=== PATIENT | female | born 1935 | race Caucasian/White ===

== ENCOUNTER 2017-01-26 07:50 | Inpatient (IN) | payer MEDICARE ==
[2017-01-26] MEDS ORDERED: Sodium Chloride 0.9% 1,000 ML IV STA (08:13)
[2017-01-26] MEDS ORDERED: metroNIDAZOLE IV 500 mg/100 ml 500 MG/100 ML BAG IVPB STA (08:15)
[2017-01-26] MEDS ORDERED: cefTRIAXone 1 gm 1 GM/100 ML BAG IVPB STA (08:15)
--- NOTE | 2017-01-26 08:31 | ED PDOC ---
Arrival/HPI - General Chief Complaint: Abdominal Pain Time Seen by Provider: 01/26/17 07:55 - History of Present Illness Narrative History of Present Illness (Text): 01/26/17 08:22 81 y/o F w/ PMHx of HTN presents to the ED via ambulance for abd pain. 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 Pt reports abd pain, nausea, and diarrhea on (01/24/17) after dinner. Non-radiating pain was worse in LUQ but extended across entire upper abd. Pt admits to 3 episodes of loose, light- colored stool night following the pain. When pain did not improve the following morning, pt went to the medical quarters for evaluation. Pt admits to nausea but denies vomiting. Pt has never had these symptoms previously. Pt denies F/C, constipation, CP, SOB. Labs were drawn showing elevated liver enzymes and amylase. Pt was started on IVF, abx, and given zofran for nausea. Currently pain is w/o pain or nausea. (Margie Pierre) Past Medical History - Provider Review Nursing Documentation Reviewed: Yes - Infectious Disease Hx of Infectious Diseases: None - Cardiac Hx Hypertension: Yes - Psychiatric Hx Substance Use: No - Surgical History Hx Thyroidectomy: Yes Family/Social History - Physician Review Nursing Documentation Reviewed: Yes Family/Social History: No Known Family HX Smoking Status: Never Smoked Hx Alcohol Use: No Hx Substance Use: No Allergies/Home Meds Allergies/Adverse Reactions: Allergies No Known Allergies Allergy (Verified 01/26/17 07:57) Home Medications: Home Meds Medication Instructions Recorded Confirmed Metoprolol Succinate [Toprol XL] 50 mg PO DAILY 01/26/17 01/26/17 amLODIPine [Norvasc] 5 mg PO DAILY 01/26/17 01/26/17 Review of Systems - Physician Review All systems were reviewed & negative as marked: Yes - Review of Systems Constitutional: absent: Fevers Respiratory: absent: SOB Physical Exam Vital Signs Reviewed: Yes Temperature: Afebrile Blood Pressure: Normal Pulse: Regular Respiratory Rate: Normal Appearance: Positive for: Non-Toxic, Comfortable Pain Distress: None Mental Status: Positive for: Alert and Oriented X 3 - Systems Exam Head: Present: Atraumatic, Normocephalic Pupils: Present: PERRL Extroacular Muscles: Present: EOMI Conjunctiva: Present: Normal Mouth: Present: Moist Mucous Membranes Respiratory/Chest: Present: Clear to Auscultation, Good Air Exchange. No: Respiratory Distress, Accessory Muscle Use Cardiovascular: Present: Regular Rate and Rhythm, Normal S1, S2. No: Murmurs Abdomen: Present: Normal Bowel Sounds, Other (negative Fonseca's sign). No: Tenderness, Distention, Peritoneal Signs Upper Extremity: Present: Normal Inspection Lower Extremity: Present: Normal Inspection. No: Edema, CALF TENDERNESS Neurological: Present: GCS=15, Speech Normal Skin: Present: Warm, Dry, Normal Color Psychiatric: Present: Alert, Oriented x 3, Normal Insight, Normal Concentration Medical Decision Making - Lab Interpretations I have reviewed the lab results: Yes Interpretation: Abnormal lab values (lipase 2200) - RAD Interpretation Seafood Manager: Radiologist - EKG Interpretation Interpreted by ED Physician: Yes (NSR, rate 94, no ST elevations/depressions) ED Course and Treatment: 01/26/17 08:32 81 y/o F w/ recent abd pain - labs - EKG - Abd US - IV Abx - fluid bolus - reassess and dispo 01/26/17 08:34 01/26/17 10:29 Pt resting comfortably in bed. denies pain or nausea. discussed admission for elevated lipase w/ pt and family at bedside, both are agreeable. Waiting for callback from Dr. Claudio for admission. 01/26/17 10:[address] Claudio, who accepts pt to his service. consults ordered for GI, Dr. Mccarthy, and General Surgery, Dr. John. Dr. Mccarthy service called, waiting for call back. Remote Ruby On Rails Developer agriculture consultant notified of consult. 01/26/17 11:18 Spoke to GI Fellow who requested LR@200, CLD, lipid panel, and MRCP w/o contrast. Fellow to see pt tomorrow morning. (Margie Pierre) 01/26/17 12:41 Patient seen and examined with resident Came up with treatment and disposition plan with resident (Brice Chavez) - Lab Interpretations Lab Results: 01/26/17 08:30 01/26/17 09:16 Lab Results 01/26/17 09:20: Urine Color Yellow, Urine Appearance Clear, Urine pH 7.0, Ur Specific [place] 1.015, Urine Protein Negative, Urine Glucose (UA) Negative, Urine Ketones 40 H, Urine Blood Trace-intact H, Urine Nitrate Negative, Urine Bilirubin Negative, Urine Urobilinogen 0.2, Ur Leukocyte Esterase Negative, Urine RBC 0 - 2, Urine WBC 0 - 2, Ur Epithelial Cells Many, Urine Bacteria Few 01/26/17 09:16: Sodium 139, Potassium 2.9 L*, Chloride 104, Carbon Dioxide 29, Anion Gap 9 L, BUN 8, Creatinine 0.5, Est GFR ( Amer) > 60, Est GFR (Non- Af Amer) > 60, Random Glucose 81, Calcium 8.7, Total Bilirubin 0.7, AST 138 H, ALT 261 H, Alkaline Phosphatase 198 H, Total Protein 6.5, Albumin 3.4, Globulin 3.1, Albumin/Globulin Ratio 1.1, Lipase 2237 H 01/26/17 08:30: PT 12.0 H, INR 1.11 H, APTT 28.8 01/26/17 08:30: WBC 10.1, RBC 3.78, Hgb 10.8 L, Hct 32.4 L, MCV 85.7, MCH 28.6, MCHC 33.3, RDW 16.1 H, Plt Count 289, MPV 9.6, Gran % 75.8 H, Lymph % (Auto) 15.8 L, [place] % (Auto) 6.6 H, Eos % (Auto) 1.6, Baso % (Auto) 0.2, Gran # 7.69 H , Lymph # 1.6, [place] # 0.7 H, Eos # 0.2, Baso # 0.02 - RAD Interpretation Narrative RAD Interpretations (Text): 01/26/17 10:32 Abd US FINDINGS: LIVER: Measures 13.4 cm in sagittal dimension. Echogenic liver may be seen in setting of hepatic parenchymal disease or fatty infiltration. No focal hepatic mass identified. The main portal vein appears patent with normal directional flow. No intrahepatic bile duct dilatation. GALLBLADDER: Gallstones. Mild gallbladder wall thickening measuring approximately 4 mm. Negative sonographic Fonseca's sign as assessed by the machine stripper. COMMON BILE DUCT: Measures 5 mm. PANCREAS: Not well visualized. RIGHT KIDNEY: Measures 9.8 x 4.8 x 5.1 cm. No obstructing calculus or hydronephrosis identified. LEFT KIDNEY: Measures 11.2 x 6.0 x 5.3 cm. No obstructing calculus or hydronephrosis identified. SPLEEN: Measures approximately 8.8 x 5.3 cm. AORTA: Limited views appear unremarkable. IVC: Limited views appear unremarkable. OTHER FINDINGS: None. IMPRESSION: Echogenic liver may be seen in setting of hepatic parenchymal disease or fatty infiltration. Cholelithiasis. Mild gallbladder wall thickening. Negative sonographic Fonseca' s sign as assessed by the machine stripper. Correlate clinically. (Margie Pierre) Radiology Orders: 01/26/17 08:13 ABDOMEN COMPLETE [US] Stat - Medication Orders Current Medication Orders: Amlodipine Besylate (Norvasc) 5 mg PO DAILY JULIANNE Potassium Chloride (Potassium Chloride 20 Meq/100 Ml) 20 meq in 100 mls @ 50 mls/hr IVPB Q2H JULIANNE Stop: 01/26/17 13:59 Last Admin: 01/26/17 10:43 Dose: 50 mls/hr Ceftriaxone Sodium (Rocephin 1 Gram Ivpb) 1 gm in 100 mls @ 100 mls/hr IVPB DAILY JULIANNE PRN Reason: Protocol Metronidazole (Flagyl) 500 mg in 100 mls @ 100 mls/hr IVPB Q8 JULIANNE PRN Reason: Protocol Sodium Chloride (Sodium Chloride 0.45%) 1,000 mls @ 60 mls/hr IV .[id number] JULIANNE Metoprolol Succinate (Toprol Xl) 50 mg PO DAILY JULIANNE Morphine Sulfate (Morphine) 2 mg IVP Q4H PRN PRN Reason: Pain, moderate (4-7) Discontinued Medications Metronidazole (Flagyl) 500 mg in 100 mls @ 100 mls/hr IVPB STAT STA PRN Reason: Protocol Stop: 01/26/17 09:14 Last Admin: 01/26/17 08:32 Dose: 100 mls/hr Ceftriaxone Sodium (Rocephin 1 Gram Ivpb) 1 gm in 100 mls @ 200 mls/hr IVPB STAT STA PRN Reason: Protocol Stop: 01/26/17 08:44 Last Admin: 01/26/17 10:43 Dose: 200 mls/hr Sodium Chloride (Sodium Chloride 0.9%) 1,000 mls @ 1,000 mls/hr IV .Q1H STA Stop: 01/26/17 09:12 Last Admin: 01/26/17 08:31 Dose: 1,000 mls/hr Disposition/Present on Arrival - Present on Arrival Any Indicators Present on Arrival: No History of DVT/PE: No History of Uncontrolled Diabetes: No Urinary Catheter: No History of Decub. Ulcer: No History Surgical Site Infection Following: None - Disposition Have Diagnosis and Disposition been Completed?: Yes Disposition Time: 10:40 Patient Plan: Admission - Disposition Diagnosis: Pancreatitis, gallstone Disposition: HOSPITALIZED Patient Problems: Current Active Problems Problem Status Onset Pancreatitis, gallstone Acute Condition: STABLE
[2017-01-26 08:35] LABS: ADD MANUAL DIFF? NO
[2017-01-26 08:39] LABS: BASO # 0.02 K/mm3 (0.0-2.0); BASO % 0.2 % (0.0-3.0); EOS # 0.2 (0.0-0.7); EOS % 1.6 % (1.5-5.0); GRAN # 7.69 (1.4-6.5); GRAN % 75.8 % (50.0-68.0); HEMATOCRIT 32.4 % (36.0-48.0); LYMPH # 1.6 (1.2-3.4); LYMPH % 15.8 % (22.0-35.0); MEAN CELL VOLUME 85.7 fL (80.0-105.0); MEAN CORPUSCULAR HEMOGLOBIN 28.6 pg (25.0-35.0); MEAN CORPUSCULAR HGB CONC 33.3 g/dl (31.0-37.0); MEAN PLATELET VOLUME 9.6 fl (7.0-11.0); MONO # 0.7 (0.1-0.6); MONO % 6.6 % (1.0-6.0); PLATELET COUNT 289 10^3/uL (120.0-450.0); RED CELL DISTRIBUTION WIDTH 16.1 % (11.5-14.5); WHITE BLOOD COUNT 10.1 10^3/ul (4.5-11.0)
[2017-01-26 09:10] LABS: INR 1.11 (0.93-1.08); PARTIAL THROMBOPLASTIN TIME 28.8 Seconds (23.7-30.8)
[2017-01-26 09:26] LABS: URINE APPEARANCE CLEAR (CLEAR); URINE BILIRUBIN NEGATIVE (NEGATIVE); URINE BLOOD TRACE-INTACT (NEGATIVE); URINE COLOR YELLOW (YELLOW); URINE GLUCOSE (UA) NEGATIVE (NEGATIVE); URINE KETONE 40 mg/dL (NEGATIVE); URINE LEUKOCYTE ESTERASE NEGATIVE Leu/uL (NEGATIVE); URINE PROTEIN NEGATIVE mg/dL (<30 mg/dL); URINE UROBILINOGEN 0.2 E.U./dL (<1 E.U./dL)
[2017-01-26 09:39] LABS: URINE BACTERIA FEW (NEG); URINE EPITHELIAL CELLS MANY /hpf (0-5); URINE RBC 0 - 2 /hpf (0-2); URINE WBC 0 - 2 /hpf (0-6)
[2017-01-26 09:42] LABS: ALB/GLOB RATIO 1.1 (1.1-1.8); ALKALINE PHOSPHATASE 198 U/L (38-133); ALT/SGPT 261 U/L (7-56); AST/SGOT 138 U/L (15-39); BILIRUBIN,TOTAL 0.7 mg/dL (0.2-1.3); BLOOD UREA NITROGEN 8 mg/dL (7-21); CALCIUM 8.7 mg/dL (8.4-10.5); CARBON DIOXIDE 29 mmol/L (21-33); CHLORIDE 104 mmol/L (98-107); GFR AFRICAN-AMERICAN > 60; GLUCOSE,RANDOM 81 mg/dL (70-110); SODIUM 139 mmol/L (132-148); TOTAL PROTEIN 6.5 g/dL (5.8-8.3)
[2017-01-26 09:51] LABS: LIPASE 2237 U/L (23-300)
[2017-01-26 09:52] LABS: POTASSIUM 2.9 mmol/L (3.6-5.0)
--- NOTE | 2017-01-26 10:17 | US ---
HISTORY: RUQ abd pain COMPARISON: None available. TECHNIQUE: Sonographic evaluation of the abdomen. FINDINGS: LIVER: Measures 13.4 cm in sagittal dimension. Echogenic liver may be seen in setting of hepatic parenchymal disease or fatty infiltration. No focal hepatic mass identified. The main portal vein appears patent with normal directional flow. No intrahepatic bile duct dilatation. GALLBLADDER: Gallstones. Mild gallbladder wall thickening measuring approximately 4 mm. Negative sonographic Fonseca's sign as assessed by the fabricator industrial furnace. COMMON BILE DUCT: Measures 5 mm. PANCREAS: Not well visualized. RIGHT KIDNEY: Measures 9.8 x 4.8 x 5.1 cm. No obstructing calculus or hydronephrosis identified. LEFT KIDNEY: Measures 11.2 x 6.0 x 5.3 cm. No obstructing calculus or hydronephrosis identified. SPLEEN: Measures approximately 8.8 x 5.3 cm. AORTA: Limited views appear unremarkable. IVC: Limited views appear unremarkable. OTHER FINDINGS: None. IMPRESSION: Echogenic liver may be seen in setting of hepatic parenchymal disease or fatty infiltration. Cholelithiasis. Mild gallbladder wall thickening. Negative sonographic Fonseca's sign as assessed by the fabricator industrial furnace. Correlate clinically.
[2017-01-26] MEDS ORDERED: Lactated Ringer's 1,000 ML IV SCH (10:59)
[2017-01-26 12:07] LABS: CHOLESTEROL 156 mg/dL (130-200)
[2017-01-26] MEDS: Sodium Chloride 0.45% 1,000 ML IV SCH (12:53)
[2017-01-26 13:20] VITALS: BMI 28.9
[2017-01-26] MEDS ORDERED: Pneumococcal 23-Valent Vaccine IM ONE (13:20)
--- NOTE | 2017-01-26 15:48 | CP.PCM.PCO ---
Physician Communication Note - Physician Communication Note Physician Communication Note: Dx Gallstone Pancreatitis-[facility](Shashi de león)
--- NOTE | 2017-01-26 15:51 | CARD ---
APPROVED REPORT EKG Measurement Heart [id number] CT 142P69 [id number] <Conclusion> Sinus rhythm with premature atrial complexes Cannot rule out Anterior infarct, age undetermined Abnormal ECG
[2017-01-26] MEDS: metroNIDAZOLE IV 500 mg/100 ml 500 MG/100 ML BAG IVPB SCH ×2 (17:03→21:13)
[2017-01-26 17:35] VITALS: RESP 20
--- NOTE | 2017-01-26 18:18 | HP ---
HISTORY OF PRESENT ILLNESS: I saw the patient this morning in the Emergency Room. She was on a [employer] ship. I was called down to the Emergency Room to put her on my service. She had left upper quadr ant pain, went across the upper abdomen, 3 episodes of loose light-colored stools. When it did not i mprove she went to the medical quarters. She had nausea. She was not feeling well on the boat and n ow she is here in the ER. She had elevated liver enzymes and amylase. She is on IV fluids and antib iotics were given on the boat. PAST MEDICAL HISTORY: She has a past medical history of hypertension. PAST SURGICAL HISTORY: She had a thyroidectomy. FAMILY HISTORY: No known family history. SOCIAL HISTORY: Never smoked, no alcohol, no drugs. ALLERGIES: She has no known drug allergies. MEDICATIONS: She takes metoprolol, Norvasc for the hypertension. REVIEW OF SYSTEMS: She has no acute vision changes or hearing changes, no sore throat. No neck pain , no chest pain, no palpitations, no shortness of breath, no coughing, mucous wheezes or congestion. There is abdominal pain, diffuse. She had changes in bowel habits on the boat, no extremity pain. Skin is intact. No numbness or tingling. PHYSICAL EXAMINATION: VITAL SIGNS: She has a 98 temp, 93 pulse, 16 respiratory rate, 144/72 blood pressure, 95% O2 sat on room air. HEENT: Head is atraumatic, normocephalic. Extraocular muscles are intact, pupils equal and reactive to light and accommodation. NECK: Supple, no JVD. LUNGS: Clear to auscultation. HEART: Regular rate. Normal S1, S2. ABDOMEN: Positive bowel sounds, soft, nontender. EXTREMITIES: No edema. NEUROLOGIC: GCS is 15. Speech is normal. Cranial nerves II-XII grossly intact. SKIN: Warm and dry. NEUROLOGIC: Alert and oriented x 3. LYMPHATICS: Thyroid midline. No palpable appreciative lymphadenopathy. LABORATORY DATA: She has a 10.1 white count, 10.8 hemoglobin, 32.4 hematocrit with 289 platelets. I NR is 1.11. She has a 139 sodium, potassium is 2.9 that was replaced. BUN 8, creatinine 0.5, GFR is greater than 60, sugar is 81, calcium is 8.7, total bili is 0.7. All the liver enzymes elevated; T is 138, ALT is 261, alkaline phosphatase 198, total protein 6.5, lipase is alejandro high at 2237 and her urine is few. She had an ultrasound of the abdomen, it showed echogenic liver, fatty infiltration, cholelithiasis, mild gallbladder wall thickening. She is here, uncomfortable. She is going to have IV fluids, Flagyl IV, morphine for pain, amlodipine , potassium replacement, Rocephin IV, metoprolol. She will have consults with GI and surgery. She w ill be n.p.o. She is here for acute pancreatitis, possible cholecystitis, increased liver enzymes, l ow potassium. Rick Claudio DO cc: [id number] TT: 01/26/2017 18:17:31 remedios
--- NOTE | 2017-01-26 20:34 | CP.PCM.CON ---
History of Present Illness - History of Present Illness History of Present Illness: Surgery consult for Dr. John 81 y/o F w/ PMHx of HTN presents to the ED for upper abd pain, nausea, and diarrhea. 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 She left on to [facility]] and came back today. Pt started feeling upper abd pain , Pt reports abd pain, nausea, and diarrhea on (01/24/17) after dinner. Non- radiating pain was worse in LUQ but extended across entire upper abd, nausea and had diarrhea yesterday. Pt admits to 3 episodes of loose, light-colored stool. When pain did not improve the following morning, pt went to the medical quarters for evaluation. Pt admits to nausea but denies vomiting. Pt has never had these symptoms previously. His son also went to cruise with her. He is not sick. Pt denies F/C, constipation, CP, SOB. Labs were drawn showing elevated liver enzymes and Lipase of 2200. US shows gallstones. Pt was started on IVF, abx, and given zofran for nausea. Currently pain is w/o pain or nausea. PMH: HTN PSH: Tubal ligation, hysterectomy Review of Systems - Review of Systems Review of Systems: See HPI Past Patient History - Infectious Disease Hx of Infectious Diseases: None - Past Social History Smoking Status: Never Smoked - CARDIAC Hx Hypertension: Yes - NEUROLOGICAL Hx Neurological Disorder: Yes (vertigo 2 yrs ago) - HEENT Hx HEENT Problems: Yes (eyeglasses) - MUSCULOSKELETAL/RHEUMATOLOGICAL Hx Arthritis: Yes (knees) Hx Falls: No - GASTROINTESTINAL Other/Comment: occasional gas takes phazyme - PSYCHIATRIC Hx Substance Use: No - SURGICAL HISTORY Other/Comment: 54 yrs ago tubal ligation and uterus removed in [place], thyroidectomy Meds Allergies/Adverse Reactions: Allergies Allergy/AdvReac Type Severity Reaction Status Date / Time No Known Allergies Allergy Verified 01/26/17 07:57 - Medications Medications: Current Medications Alprazolam (Xanax) 0.25 mg PO ONCE PRN; Protocol PRN Reason: Anxiety Stop: 02/02/17 18:44 Amlodipine Besylate (Norvasc) 5 mg PO DAILY JULIANNE Ceftriaxone Sodium (Rocephin 1 Gram Ivpb) 1 gm in 100 mls @ 100 mls/hr IVPB DAILY JULIANNE PRN Reason: Protocol Metronidazole (Flagyl) 500 mg in 100 mls @ 100 mls/hr IVPB Q8 JULIANNE PRN Reason: Protocol Last Admin: 01/26/17 17:03 Dose: 100 mls/hr Sodium Chloride (Sodium Chloride 0.45%) 1,000 mls @ 60 mls/hr IV .[id number] JULIANNE Last Admin: 01/26/17 12:53 Dose: 60 mls/hr Metoprolol Succinate (Toprol Xl) 50 mg PO DAILY [facility] Morphine Sulfate (Morphine) 2 mg IVP Q4H PRN PRN Reason: Pain, moderate (4-7) Physical Exam - Constitutional Appears: No Acute Distress - Head Exam Head Exam: ATRAUMATIC, NORMAL INSPECTION, NORMOCEPHALIC - Eye Exam Eye Exam: EOMI, Normal appearance, PERRL Pupil Exam: NORMAL ACCOMODATION, PERRL - ENT Exam ENT Exam: Mucous Membranes Moist, Normal Exam - Respiratory Exam Respiratory Exam: Clear to Auscultation Bilateral, NORMAL BREATHING PATTERN - Cardiovascular Exam Cardiovascular Exam: REGULAR RHYTHM - GI/Abdominal Exam GI & Abdominal Exam: Normal Bowel Sounds, Soft. absent: Distended, Firm, Hernia , Tenderness - Extremities Exam Extremities exam: Positive for: normal inspection - Back Exam Back exam: NORMAL INSPECTION - Neurological Exam Neurological exam: Alert, CN II-XII Intact, Normal Gait, Oriented x3, Reflexes Normal - Psychiatric Exam Psychiatric exam: Normal Affect, Normal Mood - Skin Skin Exam: Dry, Intact, Normal Color, Warm Results - Vital Signs Recent Vital Signs: Last Vital Signs Temp 98.8 F 01/26/17 16:00 Pulse 80 01/26/17 16:00 Resp 20 01/26/17 16:00 BP 148/79 01/26/17 16:00 Pulse Ox 93 L 01/26/17 16:00 - Labs Result Diagrams: 01/26/17 08:30 01/26/17 09:16 Labs: Laboratory Results - last 24 hr 01/26/17 11:50 Triglycerides 38 Cholesterol 156 LDL Cholesterol Direct 59 HDL Cholesterol 74 H Assessment & Plan - Assessment and Plan (Free Text) Assessment: Gallstone pancreatitis Lipase 2200 US: gallstones -NPO -IVF -Medical management -f/u MRCP, Gallbladder/CBD US -Trend Lipase -Recommend surgery DW Dr. Sen who is covering for Dr. John
[2017-01-27] MEDS: metroNIDAZOLE IV 500 mg/100 ml 500 MG/100 ML BAG IVPB SCH ×3 (05:22→21:20)
[2017-01-27 08:18] LABS: ALB/GLOB RATIO 1.1 (1.1-1.8); ALKALINE PHOSPHATASE 184 U/L (38-133); ALT/SGPT 208 U/L (7-56); AST/SGOT 100 U/L (15-39); BILIRUBIN,DIRECT 0.3 mg/dL (0.0-0.4); BILIRUBIN,TOTAL 0.7 mg/dL (0.2-1.3); BLOOD UREA NITROGEN 10 mg/dL (7-21); CALCIUM 8.6 mg/dL (8.4-10.5); CARBON DIOXIDE 25 mmol/L (21-33); CHLORIDE 103 mmol/L (98-107); GFR AFRICAN-AMERICAN > 60; GLUCOSE,RANDOM 64 mg/dL (70-110); SODIUM 139 mmol/L (132-148); TOTAL PROTEIN 6.8 g/dL (5.8-8.3)
[2017-01-27 08:23] LABS: POTASSIUM 2.9 mmol/L (3.6-5.0)
[2017-01-27 08:25] LABS: HEMATOCRIT 33.8 % (36.0-48.0); MEAN CORPUSCULAR HEMOGLOBIN 28.2 pg (25.0-35.0); MEAN CORPUSCULAR HGB CONC 32.8 g/dl (31.0-37.0); MEAN PLATELET VOLUME 10.1 fl (7.0-11.0); RED CELL DISTRIBUTION WIDTH 16.1 % (11.5-14.5); WHITE BLOOD COUNT 10.9 10^3/ul (4.5-11.0)
--- NOTE | 2017-01-27 08:44 | CP.PCM.PN ---
Subjective - Date & Time of Evaluation Date of Evaluation: 01/27/17 Time of Evaluation: 08:42 - Subjective Subjective: Surgery for Dr. John Pt s&e. WOO. Denies F/C/N/V/D/Cp/SOB/abd pain. +amb Objective - Vital Signs/Intake and Output Vital Signs (last 24 hours): Temp Pulse Resp BP Pulse Ox 98.8 F 90 20 156/81 H 93 L 01/27/17 08:02 01/27/17 08:02 01/27/17 08:02 01/27/17 08:02 01/27/17 08:02 Intake and Output: 01/27/17 01/27/17 06:59 18:59 Intake Total 0 Balance 0 - Medications Medications: Current Medications Alprazolam (Xanax) 0.25 mg PO ONCE PRN; Protocol PRN Reason: Anxiety Stop: 02/02/17 18:44 Amlodipine Besylate (Norvasc) 5 mg PO DAILY [facility] Ceftriaxone Sodium (Rocephin 1 Gram Ivpb) 1 gm in 100 mls @ 100 mls/hr IVPB DAILY JULIANNE PRN Reason: Protocol Metronidazole (Flagyl) 500 mg in 100 mls @ 100 mls/hr IVPB Q8 JULIANNE PRN Reason: Protocol Last Admin: 01/27/17 05:22 Dose: 100 mls/hr Sodium Chloride (Sodium Chloride 0.45%) 1,000 mls @ 60 mls/hr IV .[id number] JULIANNE Last Admin: 01/26/17 12:53 Dose: 60 mls/hr Potassium Chloride (Potassium Chloride 20 Meq/100 Ml) 20 meq in 100 mls @ 50 mls/hr IVPB ONCE ONE Stop: 01/27/17 10:39 Metoprolol Succinate (Toprol Xl) 50 mg PO DAILY JULIANNE Morphine Sulfate (Morphine) 2 mg IVP Q4H PRN PRN Reason: Pain, moderate (4-7) - Labs Labs: 01/27/17 07:00 01/27/17 07:00 PT 12.0 Seconds (9.9-11.8) H 01/26/17 08:30 INR 1.11 (0.93-1.08) H 01/26/17 08:30 APTT 28.8 Seconds (23.7-30.8) 01/26/17 08:30 - Constitutional Appears: No Acute Distress - Head Exam Head Exam: ATRAUMATIC, NORMAL INSPECTION, NORMOCEPHALIC - Eye Exam Eye Exam: EOMI, Normal appearance, PERRL Pupil Exam: NORMAL ACCOMODATION, PERRL - ENT Exam ENT Exam: Mucous Membranes Moist, Normal Exam - Neck Exam Neck Exam: Full ROM, Normal Inspection. absent: Lymphadenopathy - Respiratory Exam Respiratory Exam: Clear to Ausculation Bilateral, NORMAL BREATHING PATTERN - Cardiovascular Exam Cardiovascular Exam: REGULAR RHYTHM, +S1, +S2. absent: Murmur - GI/Abdominal Exam GI & Abdominal Exam: Soft, Normal Bowel Sounds. absent: Distended, Firm, Guarding, Rigid, Tenderness - Rectal Exam Rectal Exam: NORMAL INSPECTION - Extremities Exam Extremities Exam: Full ROM, Normal Capillary Refill, Normal Inspection. absent : Joint Swelling, Pedal Edema - Back Exam Back Exam: NORMAL INSPECTION - Neurological Exam Neurological Exam: Alert, Awake, CN II-XII Intact, Normal Gait, Oriented x3 - Psychiatric Exam Psychiatric exam: Normal Affect, Normal Mood - Skin Skin Exam: Dry, Intact, Normal Color, Warm Assessment and Plan - Assessment and Plan (Free Text) Assessment: Gallstone pancreatitis Lipase 2200 US: gallstones -NPO : Diet per GI -IVF -Medical management -f/u MRCP, Gallbladder/CBD US -Recommend surgery Will YUVAL John
--- NOTE | 2017-01-27 09:21 | CP.PCM.CON ---
<Wes Barnett - Last Filed: 01/27/17 09:05> History of Present Illness - History of Present Illness History of Present Illness: PGY4 GI Fellow Consult Note Patient is an 81yo female with PMHx significant for HTN who presented to the ED with abdominal pain. Patient was on a cruise ship returning from the [facility] when she developed epigastric abdominal pain evening after dinner. pain proceeded until the following day when she was evaluated by the ship physicians who told her she might have gallstones and to come to the hospital when they arrived in [place]. She has since been noted to have gallstones on U/S and had elevated LFTs and high lipase concerning for acute gallstone pancreatitis. Pain was located in the epigastric region but has since resolved. She is currently hungry and eager to eat. Denies any nausea, vomiting, fever, chills, change in BM. PMHx: HTN PSHx: Tubal ligation, hysterectomy, partial thyroidectomy FHx: Discussed with patient and denies any significant family history Social: Denies tobacco, EtOH or illicit drug use Endo: Last colonoscopy 2005 and unremarkable per patient Review of Systems - Constitutional Constitutional: absent: Anorexia, Chills, Fever - EENT Eyes: absent: Change in Vision Nose/Mouth/Throat: absent: Sore Throat - Cardiovascular Cardiovascular: absent: Chest Pain, Dyspnea, Edema - Respiratory Respiratory: absent: Cough, Dyspnea, Excessive Mucous Production - Gastrointestinal Gastrointestinal: Abdominal Pain, Cramping. absent: Bloating, Constipation, Diarrhea, Dyspepsia, Hematemesis, Hematochezia, Melena, Nausea, Vomiting - Genitourinary Genitourinary: absent: Dysuria, Urinary Frequency, Urinary Urgency - Musculoskeletal Musculoskeletal: absent: Back Pain, Neck Pain - Integumentary Integumentary: absent: New Lesions, Rash - Neurological Neurological: absent: Dizziness, Numbness, Focal Weakness - Psychiatric Psychiatric: absent: Anxiety, Depression - Endocrine Endocrine: absent: Polydipsia, Polyphagia, Polyuria - Hematologic/Lymphatic Hematologic: absent: Easy Bleeding, Easy Bruising, Lymphadenopathy Past Patient History - Infectious Disease Hx of Infectious Diseases: None - Past Social History Smoking Status: Never Smoked - CARDIAC Hx Hypertension: Yes - NEUROLOGICAL Hx Neurological Disorder: Yes (vertigo 2 yrs ago) - HEENT Hx HEENT Problems: Yes (eyeglasses) - MUSCULOSKELETAL/RHEUMATOLOGICAL Hx Arthritis: Yes (knees) Hx Falls: No - GASTROINTESTINAL Other/Comment: occasional gas takes phazyme - PSYCHIATRIC Hx Substance Use: No - SURGICAL HISTORY Other/Comment: 54 yrs ago tubal ligation and uterus removed in [place], thyroidectomy Meds Allergies/Adverse Reactions: Allergies Allergy/AdvReac Type Severity Reaction Status Date / Time No Known Allergies Allergy Verified 01/26/17 07:57 - Medications Medications: Current Medications Alprazolam (Xanax) 0.25 mg PO ONCE PRN; Protocol PRN Reason: Anxiety Stop: 02/02/17 18:44 Amlodipine Besylate (Norvasc) 5 mg PO DAILY [facility] Ceftriaxone Sodium (Rocephin 1 Gram Ivpb) 1 gm in 100 mls @ 100 mls/hr IVPB DAILY [facility] PRN Reason: Protocol Metronidazole (Flagyl) 500 mg in 100 mls @ 100 mls/hr IVPB Q8 JULIANNE PRN Reason: Protocol Last Admin: 01/27/17 05:22 Dose: 100 mls/hr Sodium Chloride (Sodium Chloride 0.45%) 1,000 mls @ 60 mls/hr IV .[id number] [facility] Last Admin: 01/26/17 12:53 Dose: 60 mls/hr Potassium Chloride (Potassium Chloride 20 Meq/100 Ml) 20 meq in 100 mls @ 50 mls/hr IVPB ONCE ONE Stop: 01/27/17 10:39 Metoprolol Succinate (Toprol Xl) 50 mg PO DAILY [facility] Morphine Sulfate (Morphine) 2 mg IVP Q4H PRN PRN Reason: Pain, moderate (4-7) Physical Exam - Constitutional Appears: Non-toxic, No Acute Distress - Eye Exam Eye Exam: EOMI, PERRL - ENT Exam ENT Exam: Mucous Membranes Moist - Respiratory Exam Respiratory Exam: Clear to Auscultation Bilateral. absent: Rales, Rhonchi, Wheezes - Cardiovascular Exam Cardiovascular Exam: RRR, +S1, +S2 - GI/Abdominal Exam GI & Abdominal Exam: Normal Bowel Sounds, Soft. absent: Distended, Firm, Guarding, Organomegaly, Rigid, Tenderness - Extremities Exam Extremities exam: Positive for: normal inspection. Negative for: pedal edema - Neurological Exam Neurological exam: Alert, Oriented x3 - Psychiatric Exam Psychiatric exam: Normal Affect, Normal Mood - Skin Skin Exam: Dry, Warm Results - Vital Signs Recent Vital Signs: Last Vital Signs Temp 98.8 F 01/27/17 08:02 Pulse 90 01/27/17 08:02 Resp 20 01/27/17 08:02 BP 156/81 H 01/27/17 08:02 Pulse Ox 93 L 01/27/17 08:02 - Labs Result Diagrams: 01/27/17 07:00 01/27/17 07:00 Labs: Laboratory Results - last 24 hr 01/26/17 01/27/17 01/27/17 11:50 07:00 07:00 WBC 10.9 RBC 3.93 Hgb 11.1 L Hct 33.8 L MCV 86.0 MCH 28.2 MCHC 32.8 RDW 16.1 H Plt Count 303 MPV 10.1 Sodium 139 Potassium 2.9 L* Chloride 103 Carbon Dioxide 25 Anion Gap 14 BUN 10 Creatinine 0.5 Est GFR ( Amer) > 60 Est GFR (Non-Af Amer) > 60 Random Glucose 64 L Calcium 8.6 Total Bilirubin 0.7 Direct Bilirubin 0.3 AST 100 H ALT 208 H Alkaline Phosphatase 184 H Total Protein 6.8 Albumin 3.5 Globulin 3.3 Albumin/Globulin Ratio 1.1 Triglycerides 38 Cholesterol 156 LDL Cholesterol Direct 59 HDL Cholesterol 74 H Assessment & Plan - Assessment and Plan (Free Text) Assessment: Patient is an 81yo female with PMHx significant for HTN who presented to the ED with abdominal pain. -Acute gallstone pancreatitis -HTN Plan: -Continue IVF as ordered, in absence of other comorbid conditions, would benefit from higher rate ~150-200cc/hr of LR -Advance diet as tolerated -Patient will ultimately benefit from cholecystectomy to prevent recurrence -Monitor LFTs - Date & Time Date: 01/27/17 Time: 07:40 <Ramírez Lorenzana - Last Filed: 01/27/17 09:49> Meds - Medications Medications: Current Medications Alprazolam (Xanax) 0.25 mg PO ONCE PRN; Protocol PRN Reason: Anxiety Stop: 02/02/17 18:44 Amlodipine Besylate (Norvasc) 5 mg PO DAILY [facility] Ceftriaxone Sodium (Rocephin 1 Gram Ivpb) 1 gm in 100 mls @ 100 mls/hr IVPB DAILY [facility] PRN Reason: Protocol Metronidazole (Flagyl) 500 mg in 100 mls @ 100 mls/hr IVPB Q8 JULIANNE PRN Reason: Protocol Last Admin: 01/27/17 05:22 Dose: 100 mls/hr Sodium Chloride (Sodium Chloride 0.45%) 1,000 mls @ 60 mls/hr IV .[id number] [facility] Last Admin: 01/26/17 12:53 Dose: 60 mls/hr Potassium Chloride (Potassium Chloride 20 Meq/100 Ml) 20 meq in 100 mls @ 50 mls/hr IVPB ONCE ONE Stop: 01/27/17 10:39 Metoprolol Succinate (Toprol Xl) 50 mg PO DAILY [facility] Morphine Sulfate (Morphine) 2 mg IVP Q4H PRN PRN Reason: Pain, moderate (4-7) Potassium Chloride (K-Dur 20 Meq Er Tab) 20 meq PO BRK [facility] Results - Vital Signs Recent Vital Signs: Last Vital Signs Temp 98.8 F 01/27/17 08:02 Pulse 90 01/27/17 08:02 Resp 20 01/27/17 08:02 BP 156/81 H 01/27/17 08:02 Pulse Ox 93 L 01/27/17 08:02 - Labs Result Diagrams: 01/27/17 07:00 01/27/17 07:00 Labs: Laboratory Results - last 24 hr 01/26/17 01/27/17 01/27/17 11:50 07:00 07:00 WBC 10.9 RBC 3.93 Hgb 11.1 L Hct 33.8 L MCV 86.0 MCH 28.2 MCHC 32.8 RDW 16.1 H Plt Count 303 MPV 10.1 Sodium 139 Potassium 2.9 L* Chloride 103 Carbon Dioxide 25 Anion Gap 14 BUN 10 Creatinine 0.5 Est GFR ( Amer) > 60 Est GFR (Non-Af Amer) > 60 Random Glucose 64 L Calcium 8.6 Total Bilirubin 0.7 Direct Bilirubin 0.3 AST 100 H ALT 208 H Alkaline Phosphatase 184 H Total Protein 6.8 Albumin 3.5 Globulin 3.3 Albumin/Globulin Ratio 1.1 Triglycerides 38 Cholesterol 156 LDL Cholesterol Direct 59 HDL Cholesterol 74 H Attending/Attestation - Attestation I have personally seen and examined this patient.: Yes I have fully participated in the care of the patient.: Yes I have reviewed all pertinent clinical information: Yes Notes (Text): 01/27/17 09:47 81 year old female with h/o HTN admitted with acute pancreatitis. 1. Gallstone pancreatitis Plan: -abdominal pain appears to have resolved already -she denies any pain now and hasn't required pain medications -she is on IV fluids -advance diet as tolerated to low fat diet -surgical evaluation for consideration of cholecystectomy -monitor daily lfts
[2017-01-27] MEDS: Potassium Chloride 20 mEq ER Tab PO SCH (11:06)
[2017-01-27] MEDS: Metoprolol Succinate 50 mg XL Tab PO SCH (11:06)
[2017-01-27] MEDS: cefTRIAXone 1 gm 1 GM/100 ML BAG IVPB SCH (11:07)
--- NOTE | 2017-01-27 11:29 | PN ---
DATE: 01/27/2017 I saw her this morning actually with the gastroenterology fellow. She is improving. No abdominal pain, no nausea or vomiting. She is in good spirits. She is feeling well. [place] is from the cruise ship. PHYSICAL EXAMINATION: VITAL SIGNS: She has a 98.8 temp, 90 pulse, 156/81 blood pressure, 20 respiratory rate, 93% O2 sat on room air. HEENT: Head is atraumatic, normocephalic. HEART: Regular rate. LUNGS: Clear to auscultation. ABDOMEN: Soft, nontender, positive bowel sounds. No guarding, no rebound. EXTREMITIES: No edema. MEDICATIONS: She is currently on Flagyl, morphine, Norvasc, potassium, Rocephin , IV fluids, Toprol, and Xanax. LABORATORY DATA: White count is 10.9, hemoglobin 11.1, hematocrit 33.8, platelets of 303. She has a 139 sodium, potassium is 2.9, I am going to give her K riders today and replace the low potassium again, BUN is 10, creatinine 0.4, GFR is greater than 60, sugar is 64, calcium is 8.6, total bili is 0.7,, AST is 100 better, ALT is 208 better, alkaline phosphatase 184 better, total protein 6.8, albumin 3.5, lipase is 2,237. She is being seen by GI and surgery. I am hoping if she does well and the labs are good tomorrow and I get the potassium up, we will discharge her tomorrow. She is here with severe abdominal pain, pancreatitis, possible cholecystectomy, low potassium and elevated liver enzymes. Rick Claudio DO cc: [id number] TT: 01/27/2017 11:28:39 Confirmation # [id number] Dictation # [id number] tommy LINTON
[2017-01-27] MEDS: Sodium Chloride 0.45% 1,000 ML IV SCH ×2 (14:51→21:20)
--- NOTE | 2017-01-27 16:21 | CON ---
DATE: 01/27/2017 This 81-year-old came [place] a cruise ship with abdominal pain, noted to be vital signs are normal, afeb rile. Lab work showed a white count of 10, hemoglobin 11. Coags normal. Potassium was low at 2.9. Liver functions initially were elevated, they seem to be coming down now. The bilirubin is normal, but the OT and PT were both elevated. Lipase was initially 200 and that seems to be coming down. An MRI was planned, but not done. Gallbladder shows mild gallbladder thickening of 4 mm, common duct 5 mm, no stone seen. The pancreas was not seen. IMPRESSION: Cholecystitis that seems resolved. At the present time, there is no pain at all. The p atient would consider an emergency operation, but any elective workup and treatment should be done [place] ar her [place] town close to [place]. We will follow but without surgical intent. Freddy John MD cc: [id number] TT: 01/27/2017 16:20:42 Confirmation # [id number] Dictation # [id number]
[2017-01-28] MEDS: Morphine 2 mg/ml ISec IVP PRN ×3 (05:01→22:31)
[2017-01-28] MEDS: metroNIDAZOLE IV 500 mg/100 ml 500 MG/100 ML BAG IVPB SCH ×3 (05:03→22:29)
--- NOTE | 2017-01-28 07:26 | CP.PCM.PN ---
<Summer Chambers - Last Filed: 01/28/17 09:22> Subjective - Date & Time of Evaluation Date of Evaluation: 01/28/17 Time of Evaluation: 07:21 - Subjective Subjective: Gastroenterology Fellow/PGY4 Progress Note Patient denies abdominal pain. Tolerated clear liquid diet. No bowel movement yesterday. A 12-point review of systems negative except for as above. Objective - Vital Signs/Intake and Output Vital Signs (last 24 hours): Temp Pulse Resp BP Pulse Ox 100.0 F H 97 H 20 164/85 H 96 01/28/17 06:00 01/28/17 06:00 01/28/17 06:00 01/28/17 06:00 01/28/17 06:00 Intake and Output: 01/28/17 01/28/17 06:59 18:59 Intake Total 780 Balance 780 - Medications Medications: Current Medications Alprazolam (Xanax) 0.25 mg PO ONCE PRN; Protocol PRN Reason: Anxiety Stop: 02/02/17 18:44 Amlodipine Besylate (Norvasc) 5 mg PO DAILY [facility] Last Admin: 01/27/17 11:06 Dose: 5 mg Ceftriaxone Sodium (Rocephin 1 Gram Ivpb) 1 gm in 100 mls @ 100 mls/hr IVPB DAILY [facility] PRN Reason: Protocol Last Admin: 01/27/17 11:07 Dose: 100 mls/hr Metronidazole (Flagyl) 500 mg in 100 mls @ 100 mls/hr IVPB Q8 JULIANNE PRN Reason: Protocol Last Admin: 01/28/17 05:03 Dose: 100 mls/hr Sodium Chloride (Sodium Chloride 0.45%) 1,000 mls @ 60 mls/hr IV .[id number] [facility] Last Admin: 01/27/17 21:20 Dose: 60 mls/hr Metoprolol Succinate (Toprol Xl) 50 mg PO DAILY [facility] Last Admin: 01/27/17 11:06 Dose: 50 mg Morphine Sulfate (Morphine) 2 mg IVP Q4H PRN PRN Reason: Pain, moderate (4-7) Last Admin: 01/28/17 05:01 Dose: 2 mg Potassium Chloride (K-Dur 20 Meq Er Tab) 20 meq PO BRK [facility] Last Admin: 01/27/17 11:06 Dose: 20 meq - Labs Labs: 01/27/17 07:00 01/27/17 07:00 PT 12.0 Seconds (9.9-11.8) H 01/26/17 08:30 INR 1.11 (0.93-1.08) H 01/26/17 08:30 APTT 28.8 Seconds (23.7-30.8) 01/26/17 08:30 - Constitutional Appears: Non-toxic, No Acute Distress - Head Exam Head Exam: ATRAUMATIC, NORMOCEPHALIC - Eye Exam Eye Exam: EOMI, PERRL Pupil Exam: PERRL. absent: Miosis, Mydriatic - ENT Exam ENT Exam: Mucous Membranes Moist, Normal Oropharynx - Neck Exam Neck Exam: Full ROM, Normal Inspection - Respiratory Exam Respiratory Exam: Clear to Ausculation Bilateral. absent: Rales, Rhonchi, Wheezes - Cardiovascular Exam Cardiovascular Exam: RRR, +S1, +S2. absent: Gallop, Rubs - GI/Abdominal Exam GI & Abdominal Exam: Soft, Normal Bowel Sounds. absent: Distended, Firm, Guarding, Rigid, Tenderness, Organomegaly, Rebound - Extremities Exam Extremities Exam: Normal Inspection. absent: Pedal Edema - Neurological Exam Neurological Exam: Alert, Awake - Psychiatric Exam Psychiatric exam: Normal Affect, Normal Mood - Skin Skin Exam: Dry, Intact, Normal Color, Warm Assessment and Plan - Assessment and Plan (Free Text) Assessment: 81 year old female with history of Hypertension presenting with abdominal pain. Active treatment of acute mild gallstone pancreatitis. Prior colonoscopy in 2006 endorsed to be normal per patient. Plan: >gentle IVFs, titrate as diet tolerated >tolerating clear liquids >surgery managing- recommend cholecystectomy >patient considering second opinion once return home >okay to advance to full liquids, low fat diet as tolerated from GI standpoint >monitor LFTs >counselled patient on cholecystectomy to prevent reoccurrence >will follow clinical course <Jose Mccarthy - Last Filed: 01/28/17 10:39> Objective - Vital Signs/Intake and Output Vital Signs (last 24 hours): Temp Pulse Resp BP Pulse Ox 100.0 F H 97 H 20 164/85 H 96 01/28/17 09:19 01/28/17 09:19 01/28/17 09:19 01/28/17 09:01/28/17 09:19 Intake and Output: 01/28/17 01/28/17 06:59 18:59 Intake Total 780 Balance 780 - Medications Medications: Current Medications Alprazolam (Xanax) 0.25 mg PO ONCE PRN; Protocol PRN Reason: Anxiety Stop: 02/02/17 18:44 Amlodipine Besylate (Norvasc) 5 mg PO DAILY [facility] Last Admin: 01/27/17 11:06 Dose: 5 mg Ceftriaxone Sodium (Rocephin 1 Gram Ivpb) 1 gm in 100 mls @ 100 mls/hr IVPB DAILY [facility] PRN Reason: Protocol Last Admin: 01/27/17 11:07 Dose: 100 mls/hr Metronidazole (Flagyl) 500 mg in 100 mls @ 100 mls/hr IVPB Q8 JULIANNE PRN Reason: Protocol Last Admin: 01/28/17 05:03 Dose: 100 mls/hr Sodium Chloride (Sodium Chloride 0.45%) 1,000 mls @ 60 mls/hr IV .[id number] [facility] Last Admin: 01/27/17 21:20 Dose: 60 mls/hr Potassium Chloride (Potassium Chloride 20 Meq/100 Ml) 20 meq in 100 mls @ 50 mls/hr IVPB Q2H JULIANNE Stop: 01/28/17 12:14 Last Admin: 01/28/17 08:43 Dose: 50 mls/hr Metoprolol Succinate (Toprol Xl) 50 mg PO DAILY [facility] Last Admin: 01/27/17 11:06 Dose: 50 mg Morphine Sulfate (Morphine) 2 mg IVP Q4H PRN PRN Reason: Pain, moderate (4-7) Last Admin: 01/28/17 05:01 Dose: 2 mg Potassium Chloride (K-Dur 20 Meq Er Tab) 20 meq PO BRK [facility] Last Admin: 01/27/17 11:06 Dose: 20 meq - Labs Labs: 01/28/17 06:30 01/28/17 06:30 PT 12.0 Seconds (9.9-11.8) H 01/26/17 08:30 INR 1.11 (0.93-1.08) H 01/26/17 08:30 APTT 28.8 Seconds (23.7-30.8) 01/26/17 08:30 Attending/Attestation - Attestation I have personally seen and examined this patient.: Yes I have fully participated in the care of the patient.: Yes I have reviewed all pertinent clinical information, including history, physical exam and plan: Yes Notes (Text): 01/28/17 10:34 I have seen and examined patient with GI fellow. No acute events overnight. She is seen sitting at bedside eating breakfast, appears comfortable. She denies abdominal pain, nausea, vomiting, fever/chills. She had one loose bowel movement yesterday. Review of vitals from today show low grade fever and elevated BP. HTN Abdominal pain secondary to gallstone pancreatitis - Continue with IVF hydration, supportive care - Advance to low fat diet slowly as tolerated - Lipase normalized, continue to monitor LFTs - Patient was recommended by surgical team to undergo cholecystectomy, however she wishes to have further medical care closer to her home. She was counseled regarding the risks to this strategy, she understands and will make an appointment with her PMD this week for follow up. - If tolerating diet, from GI perspsective ok to discharge home with subsequent outpatient follow up.
[2017-01-28 07:27] LABS: HEMATOCRIT 30.9 % (36.0-48.0); MEAN CELL VOLUME 84.7 fL (80.0-105.0); MEAN CORPUSCULAR HEMOGLOBIN 27.4 pg (25.0-35.0); MEAN CORPUSCULAR HGB CONC 32.4 g/dl (31.0-37.0); MEAN PLATELET VOLUME 9.9 fl (7.0-11.0); WHITE BLOOD COUNT 11.8 10^3/ul (4.5-11.0)
[2017-01-28 07:33] LABS: ALB/GLOB RATIO 1.1 (1.1-1.8); ALKALINE PHOSPHATASE 164 U/L (38-133); ALT/SGPT 154 U/L (7-56); AST/SGOT 73 U/L (15-39); BILIRUBIN,TOTAL 0.8 mg/dL (0.2-1.3); BLOOD UREA NITROGEN 10 mg/dL (7-21); CALCIUM 8.5 mg/dL (8.4-10.5); CARBON DIOXIDE 25 mmol/L (21-33); CHLORIDE 103 mmol/L (95-110); GFR AFRICAN-AMERICAN > 60; GLUCOSE,RANDOM 101 mg/dL (70-110); LIPASE 92 U/L (23-300); SODIUM 136 mmol/L (132-148); TOTAL PROTEIN 6.3 g/dL (5.8-8.3)
[2017-01-28 07:51] LABS: POTASSIUM 2.9 mmol/L (3.6-5.0)
--- NOTE | 2017-01-28 09:00 | DS ---
I saw the patient resting comfortably in bed. She is feeling better. No chest pain, no shortness of breath, no abdominal pain. No nausea, vomiting. No constipation, diarrhea. She is very comfortabl e. She is happy. She is smiling and she is hungry. She did very well with her clears yesterday. I am going to increase her diet to regular. If she does well, GI said I can discharge her. She is on Flagyl, K-Dur, morphine, Norvasc, Rocephin, IV fluids, Toprol and Xanax. PHYSICAL EXAMINATION: VITAL SIGNS: She has a 100 temperature, 97 pulse, 164/85 blood pressure, 20 respiratory rate, 96% O2 sat on room air. If the temperature does not go down, it sounds like we might have to keep her. I will discuss that with GI, although clinically she is much improved. HEENT: Head is atraumatic, normocephalic. HEART: Regular rate. LUNGS: Clear to auscultation. ABDOMEN: Soft, nontender, positive bowel sounds, no guarding, no rebound, no CVA tenderness. EXTREMITIES: Have no edema. LABORATORIES: She has 11.8 white count, 10 hemoglobin, 30.9 hematocrit with 286 platelets. Sodium 1 36, potassium is also down to 2.9. I do not think I am discharging her today with her temperature an d a low potassium again. BUN is 10, creatinine 0.5, GFR is greater than 60, sugar is 101, calcium is 8.5. Total bili is 0.8, AST is better 73, ALT is 154, alk phos 164, total protein 6.3. We might not be able to discharge the patient today. For right now, she is comfortable. She has a t emperature of 100. I am going to increase her diet. I am going to replace her potassium and we will see how she does this afternoon. If it is okay with GI and they say it is all right, I will put her on p.o. antibiotics and discharge her if she eats well. She was here for pancreatitis, cholecystitis, low potassium, increased liver function tests. Rick Claudio DO cc: [id number] TT: 01/28/2017 08:59:36 en
--- NOTE | 2017-01-28 09:35 | CP.PCM.PN ---
Subjective - Date & Time of Evaluation Date of Evaluation: 01/28/17 Time of Evaluation: 07:00 - Subjective Subjective: Rodrigo Cuadra D.O. PGY-1, General Surgery Progress Note, Dr. Alvaro Barrios. 81 year old female with a PMH of HTN who presented with abdominal pain, general surgery consulted for gallstone pancreatitis. Patient was seen and examined at bedside with surgical team and then with attending physician. Patient is doing much better, states that she currently has no more pain and that she has been able to tolerate solid food but that she does not have much of an appetite. Patient would still like to go back to [facility] to have her surgery. Objective - Vital Signs/Intake and Output Vital Signs (last 24 hours): Temp Pulse Resp BP Pulse Ox 100.0 F H 97 H 20 164/85 H 96 01/28/17 09:19 01/28/17 09:19 01/28/17 09:19 01/28/17 09:19 01/28/17 09:19 Intake and Output: 01/28/17 01/28/17 06:59 18:59 Intake Total 780 Balance 780 - Medications Medications: Current Medications Alprazolam (Xanax) 0.25 mg PO ONCE PRN; Protocol PRN Reason: Anxiety Stop: 02/02/17 18:44 Amlodipine Besylate (Norvasc) 5 mg PO DAILY [facility] Last Admin: 01/27/17 11:06 Dose: 5 mg Ceftriaxone Sodium (Rocephin 1 Gram Ivpb) 1 gm in 100 mls @ 100 mls/hr IVPB DAILY [facility] PRN Reason: Protocol Last Admin: 01/27/17 11:07 Dose: 100 mls/hr Metronidazole (Flagyl) 500 mg in 100 mls @ 100 mls/hr IVPB Q8 JULIANNE PRN Reason: Protocol Last Admin: 01/28/17 05:03 Dose: 100 mls/hr Sodium Chloride (Sodium Chloride 0.45%) 1,000 mls @ 60 mls/hr IV .[id number] [facility] Last Admin: 01/27/17 21:20 Dose: 60 mls/hr Potassium Chloride (Potassium Chloride 20 Meq/100 Ml) 20 meq in 100 mls @ 50 mls/hr IVPB Q2H JULIANNE Stop: 01/28/17 12:14 Last Admin: 01/28/17 08:43 Dose: 50 mls/hr Metoprolol Succinate (Toprol Xl) 50 mg PO DAILY [facility] Last Admin: 01/27/17 11:06 Dose: 50 mg Morphine Sulfate (Morphine) 2 mg IVP Q4H PRN PRN Reason: Pain, moderate (4-7) Last Admin: 01/28/17 05:01 Dose: 2 mg Potassium Chloride (K-Dur 20 Meq Er Tab) 20 meq PO BRK [facility] Last Admin: 01/27/17 11:06 Dose: 20 meq - Labs Labs: 01/28/17 06:30 01/28/17 06:30 PT 12.0 Seconds (9.9-11.8) H 01/26/17 08:30 INR 1.11 (0.93-1.08) H 01/26/17 08:30 APTT 28.8 Seconds (23.7-30.8) 01/26/17 08:30 - Constitutional Appears: well developed, elderly, NAD - Head Exam Head Exam: ATRAUMATIC, NORMAL INSPECTION, NORMOCEPHALIC - Eye Exam Eye Exam: EOMI, Normal appearance - ENT Exam ENT Exam: Mucous Membranes Moist, Normal Exam - Neck Exam Neck Exam: Full ROM, Normal Inspection - Respiratory Exam Respiratory Exam: Clear to Ausculation Bilateral, NORMAL BREATHING PATTERN - Cardiovascular Exam Cardiovascular Exam: REGULAR RHYTHM, +S1, +S2. absent: Murmur - GI/Abdominal Exam GI & Abdominal Exam: Soft, Normal Bowel Sounds. absent: Distended, Firm, Guarding, Rigid, Tenderness - Extremities Exam Extremities Exam: Full ROM, Normal Capillary Refill, Normal Inspection. absent : Joint Swelling, Pedal Edema - Back Exam Back Exam: NORMAL INSPECTION - Neurological Exam Neurological Exam: Alert, Awake, CN II-XII Intact, Normal Gait, Oriented x4 - Skin Skin Exam: Dry, Intact, Normal Color, Warm Assessment and Plan - Assessment and Plan (Free Text) Assessment: 81 year old female with abd pain 2/2 gallstone pancreatitis Plan: GI recs appreciated Tolerating regular diet Lipase back to normal Refused MRI twice Per patient's wishes she will return home and have her surgery over there as outpatient, re-enforced that she should have cholecystectomy to prevent further attacks, we will sign off Discussed with attending physician. Thank you for the pleasure of participating in the care of this patient.
[2017-01-28] MEDS: Potassium Chloride 20 mEq ER Tab PO SCH (11:13)
[2017-01-28] MEDS: Metoprolol Succinate 50 mg XL Tab PO SCH (11:13)
[2017-01-28] MEDS: cefTRIAXone 1 gm 1 GM/100 ML BAG IVPB SCH (11:14)
[2017-01-28 12:55] LABS: ALB/GLOB RATIO 1.1 (1.1-1.8); ALKALINE PHOSPHATASE 163 U/L (38-133); ALT/SGPT 168 U/L (7-56); AST/SGOT 96 U/L (15-39); BLOOD UREA NITROGEN 10 mg/dL (7-21); CALCIUM 8.6 mg/dL (8.4-10.5); CARBON DIOXIDE 26 mmol/L (21-33); CHLORIDE 101 mmol/L (98-107); GFR AFRICAN-AMERICAN > 60; GLUCOSE,RANDOM 121 mg/dL (70-110); POTASSIUM 3.5 mmol/L (3.6-5.0); SODIUM 134 mmol/L (132-148); TOTAL PROTEIN 6.9 g/dL (5.8-8.3)
[2017-01-28] MEDS: Sodium Chloride 0.45% 1,000 ML IV SCH (17:37)
[2017-01-29] MEDS: metroNIDAZOLE IV 500 mg/100 ml 500 MG/100 ML BAG IVPB SCH (05:19)
[2017-01-29 07:47] VITALS: TEMP 99.4; O2SAT 98
[2017-01-29] MEDS: Potassium Chloride 20 mEq ER Tab PO SCH (08:23)
--- NOTE | 2017-01-29 08:30 | CP.PCM.PN ---
<ReyesSummer - Last Filed: 01/29/17 11:42> Subjective - Date & Time of Evaluation Date of Evaluation: 01/29/17 Time of Evaluation: 08:25 - Subjective Subjective: Gastroenterology Fellow/PGY4 Progress Note Patient denies abdominal pain. Tolerating regular diet. One bowel movement yesterday. A 12-point review of systems negative except for as above. Objective - Vital Signs/Intake and Output Vital Signs (last 24 hours): Temp Pulse Resp BP Pulse Ox 99.4 F 90 20 153/73 H 98 01/29/17 07:30 01/29/17 07:30 01/29/17 07:30 01/29/17 07:30 01/29/17 07:30 Intake and Output: 01/29/17 01/29/17 06:59 18:59 Intake Total 120 Balance 120 - Medications Medications: Current Medications Alprazolam (Xanax) 0.25 mg PO ONCE PRN; Protocol PRN Reason: Anxiety Stop: 02/02/17 18:44 Amlodipine Besylate (Norvasc) 5 mg PO DAILY [facility] Last Admin: 01/28/17 11:14 Dose: 5 mg Ceftriaxone Sodium (Rocephin 1 Gram Ivpb) 1 gm in 100 mls @ 100 mls/hr IVPB DAILY JULIANNE PRN Reason: Protocol Last Admin: 01/28/17 11:14 Dose: 100 mls/hr Metronidazole (Flagyl) 500 mg in 100 mls @ 100 mls/hr IVPB Q8 JULIANNE PRN Reason: Protocol Last Admin: 01/29/17 05:19 Dose: 100 mls/hr Sodium Chloride (Sodium Chloride 0.45%) 1,000 mls @ 60 mls/hr IV .[id number] [facility] Last Admin: 01/28/17 17:37 Dose: 60 mls/hr Metoprolol Succinate (Toprol Xl) 50 mg PO DAILY [facility] Last Admin: 01/28/17 11:13 Dose: 50 mg Potassium Chloride (K-Dur 20 Meq Er Tab) 20 meq PO BRK JULIANNE Last Admin: 01/28/17 11:13 Dose: 20 meq - Labs Labs: 01/28/17 06:30 01/28/17 12:40 PT 12.0 Seconds (9.9-11.8) H 01/26/17 08:30 INR 1.11 (0.93-1.08) H 01/26/17 08:30 APTT 28.8 Seconds (23.7-30.8) 01/26/17 08:30 - Constitutional Appears: Non-toxic, No Acute Distress - Head Exam Head Exam: ATRAUMATIC, NORMOCEPHALIC - Eye Exam Eye Exam: EOMI, PERRL Pupil Exam: PERRL. absent: Miosis, Mydriatic - ENT Exam ENT Exam: Mucous Membranes Moist, Normal Oropharynx - Neck Exam Neck Exam: Full ROM, Normal Inspection - Respiratory Exam Respiratory Exam: Clear to Ausculation Bilateral. absent: Rales, Rhonchi, Wheezes - Cardiovascular Exam Cardiovascular Exam: RRR, +S1, +S2. absent: Gallop, Rubs - GI/Abdominal Exam GI & Abdominal Exam: Soft, Normal Bowel Sounds. absent: Distended, Firm, Guarding, Rigid, Tenderness, Organomegaly, Rebound - Extremities Exam Extremities Exam: Full ROM. absent: Pedal Edema - Neurological Exam Neurological Exam: Alert, Awake - Psychiatric Exam Psychiatric exam: Normal Affect, Normal Mood - Skin Skin Exam: Dry, Intact, Normal Color, Warm Assessment and Plan - Assessment and Plan (Free Text) Assessment: 81 year old female with history of Hypertension presenting with abdominal pain. Active treatment of acute mild gallstone pancreatitis. Prior colonoscopy in 2006 endorsed to be normal per patient. Plan: >tolerating low fat diet >recommend cholecystectomy >patient plans to get second opinion upon return home to [facility]] >counselled patient on cholecystectomy to prevent reoccurrence >repeat LFTs with PCP >will follow clinical course <Ramírez Lorenzana - Last Filed: 01/29/17 11:46> Objective - Vital Signs/Intake and Output Vital Signs (last 24 hours): Temp Pulse Resp BP Pulse Ox 99.4 F 91 H 20 150/83 98 01/29/17 07:30 01/29/17 10:08 01/29/17 07:30 01/29/17 10:08 01/29/17 07:30 Intake and Output: 01/29/17 01/29/17 06:59 18:59 Intake Total 120 Balance 120 - Medications Medications: Current Medications Alprazolam (Xanax) 0.25 mg PO ONCE PRN; Protocol PRN Reason: Anxiety Stop: 02/02/17 18:44 Amlodipine Besylate (Norvasc) 5 mg PO DAILY [facility] Last Admin: 01/29/17 10:08 Dose: 5 mg Ceftriaxone Sodium (Rocephin 1 Gram Ivpb) 1 gm in 100 mls @ 100 mls/hr IVPB DAILY JULIANNE PRN Reason: Protocol Last Admin: 01/29/17 10:07 Dose: 100 mls/hr Metronidazole (Flagyl) 500 mg in 100 mls @ 100 mls/hr IVPB Q8 JULIANNE PRN Reason: Protocol Last Admin: 01/29/17 05:19 Dose: 100 mls/hr Sodium Chloride (Sodium Chloride 0.45%) 1,000 mls @ 60 mls/hr IV .[id number] [facility] Last Admin: 01/28/17 17:37 Dose: 60 mls/hr Metoprolol Succinate (Toprol Xl) 50 mg PO DAILY [facility] Last Admin: 01/29/17 10:08 Dose: 50 mg Potassium Chloride (K-Dur 20 Meq Er Tab) 20 meq PO BRK [facility] Last Admin: 01/29/17 08:23 Dose: 20 meq - Labs Labs: 01/28/17 06:30 01/28/17 12:40 PT 12.0 Seconds (9.9-11.8) H 01/26/17 08:30 INR 1.11 (0.93-1.08) H 01/26/17 08:30 APTT 28.8 Seconds (23.7-30.8) 01/26/17 08:30 Attending/Attestation - Attestation I have personally seen and examined this patient.: Yes I have fully participated in the care of the patient.: Yes I have reviewed all pertinent clinical information, including history, physical exam and plan: Yes Notes (Text): 01/29/17 11:44 81 year old female with h/o HTN admitted with acute pancreatitis. 1. Gallstone pancreatitis 2. Elevated LFTs Plan: -pancreatitis is resolved -no pain/tolerating diet -lfts improved but not normal -viral hepatitis serologies are negative -recommended outpatient surgical consideration of cholecystectomy when she goes home -patient and family educated about complications of gallstone disease as well as need for follow up LFTs and potentially further workup if these remain elevated
[2017-01-29] MEDS: cefTRIAXone 1 gm 1 GM/100 ML BAG IVPB SCH (10:07)
[2017-01-29] MEDS: Metoprolol Succinate 50 mg XL Tab PO SCH (10:08)
[2017-01-29 10:12] VITALS: BP 150/83; PULSE 91
--- NOTE | 2017-01-29 16:00 | CON ---
DATE: 01/29/2017 The patient is seen on the floor. She has resolving mild pancreatitis, liver functions are still stuart vated, but generally declining. Had a temperature yesterday that is now resolved. Has no abdominal pain. The white count is 11.8. The AST is 96, ALT 168, and alk phos 163, lipase is now normal. The abdomen is soft, nontender. The patient is electing to go home to see her primary doctor and alan jesus for consideration for cholecystectomy as the probable cause of this abdominal pain incident. She i s off a cruise ship and is uncomfortable in [place]. She does have stones, and I think it would be a very reasonable thing. I will sign off. Please recall as necessary. Freddy John MD cc: [id number] TT: 01/29/2017 15:59:44 Confirmation # [id number] Dictation # [id number] mn
--- NOTE | 2017-01-29 22:43 | DS ---
HISTORY OF PRESENT ILLNESS: Apparently, she cannot go home last night. There was a problem with transportation. She is going to go home today. She is refusing any gallbladder surgery for gallstone pancreatitis. She also is quite weak and would probably need some sort of rehab, but she said she will take care of that when she goes home. She is not wanting to go at this time. I discussed falls and fractured hips and she understands that and still out right refuses to go to subacute rehab here in our [facility]. She is comfortable. She is in no pain, no chest pain, no shortness of breath. No abdominal pain. She is in good spirits. She feels well. She is going to go home on antibiotics, metoprolol, Cipro, amlodipine, potassium, Flagyl. PHYSICAL EXAMINATION: VITAL SIGNS: She has a 99.1 temp; it is better than 100. She has a 94 pulse, 137/69 blood pressure, 20 respiratory rate, 94% O2 sat on room air. HEENT: Head is atraumatic, normocephalic. HEART: Regular rate. LUNGS: Clear to auscultation. ABDOMEN: Soft, nontender, positive bowel sounds. EXTREMITIES: No edema, but she is weak. LABORATORY DATA: Last labs were yesterday, 134 sodium, potassium 3.5, BUN 10, creatinine 0.5, GFR is greater than 60, sugar is 121. Total bili is 1, AST is 96, ALT is 168, alkaline phosphatase is 163, total protein 6.9, hemoglobin was 10, hematocrit 30.9, platelets of 286, white count is . PLAN: She is to follow up with her doctor in [facility]. She understands that she is not done with the antibiotics and she needs to have her gallbladder taken out, as long as the gallstone is there, she will have continued issues and she will need to have physical therapy. I wish she would reconsider for rehabilitation and surgery, but she refuses. She wants to go back home where she is from with her doctors down there and she is [place] the cruise ship. Rick Claudio DO cc: [id number] TT: 01/29/2017 22:42:58 [facility] # [id number] mn MTDD
== END 2017-01-29 12:26 | disposition home or self-care (01) | DRG 439 ==
LOC: ED 07:50 → ERH 10:40 → 5RNO 13:25
PROVIDERS: ADMIT Family Medicine; ATTEND Family Medicine
DX: K85.10 Biliary acute pancreatitis without necrosis or infection (principal); K80.10 Calculus of gallbladder with chronic cholecystitis without obstruction; I10 Essential (primary) hypertension; R79.89 Other specified abnormal findings of blood chemistry